=== PATIENT | female | born 1975 | race Hispanic/Latino ===

== ENCOUNTER → 2023-07-18 09:06 | Outpatient (REF) | payer OTHER, SELFPAY ==
[2023-07-18 10:37] LABS: ALT (SGPT) 43 U/L (0-35); AST (SGOT) 33 U/L (14-36); Albumin 4.6 g/dl (3.5-5.0); Alkaline Phosphatase 77 U/L (38-126); Blood Urea Nitrogen 18 mg/dl (7-17); Calcium 9.4 mg/dl (8.4-10.2); Carbon Dioxide 25 mmol/L (22-30); Chloride 107 mmol/L (98-107); GGTP 23 U/L (12-43); Glucose 101 mg/dl (70-99); Potassium 4.6 mmol/L (3.5-5.1); Sodium 137 mmol/L (135-145); Total Bilirubin 0.5 mg/dl (0.2-1.3); Total Protein 7.8 g/dl (6.3-8.2); eGFR > 60.00
[2023-07-18 10:58] LABS: Vitamin D, 25-OH*** 28.9 ng/mL (30-80)
[2023-07-18 11:52] LABS: Glycohemoglobin (HgbA1c) 5.8 % (4.0-5.6)
== END ==
LOC: REG 09:06
PROVIDERS: ATTENDING PHYSICIAN Nurse Practitioner Adult Health
DX: E55.9 Vitamin D deficiency, unspecified (principal); R73.03 Prediabetes; R74.8 Abnormal levels of other serum enzymes; R78.2 Finding of cocaine in blood
CPT/HCPCS: 36415; 80053; 82306; 82977; 83036

== ENCOUNTER → 2023-10-24 07:44 | Outpatient (REF) | payer OTHER, SELFPAY ==
[2023-10-24 09:28] LABS: ALT (SGPT) 45 U/L (0-35); AST (SGOT) 33 U/L (14-36); Albumin 4.5 g/dl (3.5-5.0); Alkaline Phosphatase 83 U/L (38-126); Blood Urea Nitrogen 17 mg/dl (7-17); Calcium 9.1 mg/dl (8.4-10.2); Carbon Dioxide 26 mmol/L (22-30); Chloride 105 mmol/L (98-107); Glucose 107 mg/dl (70-99); Potassium 4.5 mmol/L (3.5-5.1); Sodium 139 mmol/L (135-145); Total Bilirubin 0.4 mg/dl (0.2-1.3); Total Protein 7.4 g/dl (6.3-8.2); Triglyceride 239 mg/dl (10-149); Very Low Density Lipoprotein 47 mg/dl (0-30); eGFR > 60.00
[2023-10-24 09:40] LABS: Vitamin D, 25-OH*** 36.3 ng/mL (30-80)
[2023-10-24 09:42] LABS: HDL Cholesterol 32 mg/dl; LDL Cholesterol, Calculated 123 mg/dl; Total Cholesterol 202 mg/dl (50-199)
[2023-10-24 10:53] LABS: Glycohemoglobin (HgbA1c) 5.9 % (4.0-5.6)
== END ==
LOC: CLINIC 07:44
PROVIDERS: ATTENDING PHYSICIAN Nurse Practitioner Adult Health
DX: R73.03 Prediabetes (principal); R74.8 Abnormal levels of other serum enzymes; E78.2 Mixed hyperlipidemia; E55.9 Vitamin D deficiency, unspecified
CPT/HCPCS: 36415; 80053; 80061; 82306; 83036

== ENCOUNTER → 2024-07-06 09:32 | Outpatient (REF) | payer OTHER, SELFPAY ==
[2024-07-06 11:16] LABS: Glycohemoglobin (HgbA1c) 5.8 % (4.0-5.6)
[2024-07-06 12:06] LABS: ALT (SGPT) 68 U/L (0-35); AST (SGOT) 39 U/L (14-36); Albumin 4.1 g/dl (3.5-5.0); Alkaline Phosphatase 70 U/L (38-126); Blood Urea Nitrogen 16 mg/dl (7-17); Carbon Dioxide 27 mmol/L (22-30); Chloride 105 mmol/L (98-107); Glucose 96 mg/dl (70-99); HDL Cholesterol 35 mg/dl; LDL Cholesterol, Calculated 134 mg/dl; Potassium 4.4 mmol/L (3.5-5.1); Sodium 138 mmol/L (135-145); Total Bilirubin 0.7 mg/dl (0.2-1.3); Total Cholesterol 220 mg/dl (50-199); Total Protein 7.1 g/dl (6.3-8.2); Triglyceride 256 mg/dl (10-149); Very Low Density Lipoprotein 51 mg/dl (0-30); eGFR > 60.00
== END ==
LOC: REG 09:32
PROVIDERS: ATTENDING PHYSICIAN Nurse Practitioner Adult Health
DX: R73.03 Prediabetes (principal); E78.2 Mixed hyperlipidemia; R74.8 Abnormal levels of other serum enzymes
CPT/HCPCS: 36415; 80053; 80061; 83036

== ENCOUNTER → 2025-01-25 09:21 | Outpatient (REF) | payer OTHER, SELFPAY ==
[2025-01-25 11:05] LABS: ALT (SGPT) 44 U/L (0-35); AST (SGOT) 29 U/L (14-36); Albumin 4.6 g/dl (3.5-5.0); Alkaline Phosphatase 66 U/L (38-126); Blood Urea Nitrogen 13 mg/dl (7-17); Calcium 9.1 mg/dl (8.4-10.2); Carbon Dioxide 27 mmol/L (22-30); Chloride 107 mmol/L (98-107); Glucose 104 mg/dl (70-99); Potassium 4.5 mmol/L (3.5-5.1); Sodium 142 mmol/L (135-145); Total Protein 7.7 g/dl (6.3-8.2); eGFR > 60.00
[2025-01-25 11:35] LABS: Hepatitis B Surface Antigen Negative (Negative)
[2025-01-25 11:54] LABS: Hepatitis C Antibody Negative (Negative)
[2025-01-25 12:51] LABS: Glycohemoglobin (HgbA1c) 6.1 % (4.0-5.9)
== END ==
LOC: CLINIC 09:21
PROVIDERS: ATTENDING PHYSICIAN Nurse Practitioner Adult Health
DX: R73.03 Prediabetes (principal); R74.8 Abnormal levels of other serum enzymes
CPT/HCPCS: 36415; 80053; 83036; 86704; 86706; 86803; 87340